=== PATIENT | female | born 1985 | race Caucasian/White ===

== ENCOUNTER 2016-06-16 16:30 | Emergency (ER) | payer OTHER ==
--- NOTE | 2016-06-16 19:29 | ED ORDER SUMMARY ---
..... Patient: MARITZA HERNANDEZ OrderSheet [facility] VisitID: [id number] [place] [address] 31y, F Registration Date/Time: 06/16/2016 ORDER SHEET Weight: 58.9 kg (estimated) Allergies: Penicillins GENERAL ORDERS: MEDICATION ORDERS: Promethazine IV 25 mg (NOW) (17:11 06/16/2016 JCoates) (Ack 17:16 SStone R.N.) (17:40 SStone R.N.) IV FLUIDS: IV NS : initial bolus 1000 mL (1000 mL/hr), then 1000 mL/hr for X2 (NOW) (17:09 06/16/2016 JCoates) (Ack 17:16 SStone R.N.) (17:39 SStone R.N.) Decadron IV 10 mg (NOW) (17:10 06/16/2016 JCoates) (Ack 17:16 SStone R.N.) (17:40 SStone R.N.) Benadryl IV 25 mg (prior to promethazine. Thanks.) (17:10 06/16/2016 JCoates) (Ack 17:16 SStone R.N.) (17:40 SStone R.N.) Toradol IV 30 mg (NOW) (17:11 06/16/2016 JCoates) (Ack 17:16 SStone R.N.) (17:40 SStone R.N.) IV Saline Lock (17:12 06/16/2016 JCoates) (Ack 17:16 SStone R.N.) ORDER SHEET NOTES: [Electronically signed by Jean Paul Kinsey (23:06 06/16/2016)] [Electronically signed by Rhonda Cifuentes (23:34 06/16/2016)] [Electronically locked/signed by Rhonda Cifuentes (23:34 06/16/2016)]
--- NOTE | 2016-06-16 19:29 | ED ORDER SUMMARY ---
..... Patient: MARITZA HERNANDEZ OrderSheet [facility] VisitID: [id number] [place] [address] 31y, F Registration Date/Time: 06/16/2016 ORDER SHEET Weight: 58.9 kg (estimated) Allergies: Penicillins GENERAL ORDERS: MEDICATION ORDERS: Promethazine IV 25 mg (NOW) (17:11 06/16/2016 JCoates) (Ack 17:16 SStone R.N.) (17:40 SStone R.N.) IV FLUIDS: IV NS : initial bolus 1000 mL (1000 mL/hr), then 1000 mL/hr for X2 (NOW) (17:09 06/16/2016 JCoates) (Ack 17:16 SStone R.N.) (17:39 SStone R.N.) Decadron IV 10 mg (NOW) (17:10 06/16/2016 JCoates) (Ack 17:16 SStone R.N.) (17:40 SStone R.N.) Benadryl IV 25 mg (prior to promethazine. Thanks.) (17:10 06/16/2016 JCoates) (Ack 17:16 SStone R.N.) (17:40 SStone R.N.) Toradol IV 30 mg (NOW) (17:11 06/16/2016 JCoates) (Ack 17:16 SStone R.N.) (17:40 SStone R.N.) IV Saline Lock (17:12 06/16/2016 JCoates) (Ack 17:16 SStone R.N.) ORDER SHEET NOTES: [Electronically signed by Jean Paul Kinsey (23:06 06/16/2016)] [Electronically signed by Rhonda Cifuentes (23:34 06/16/2016)] [Electronically locked/signed by Rhonda Cifuentes (23:34 06/16/2016)]
--- NOTE | 2016-06-16 19:29 | ED CLINICAL REPORT ---
Clinical Report - Physicians/Mid Levels [facility] [address] [place] [address] 06/16/2016 16:32 Patient: MARITZA HERNANDEZ Time Seen: 16:53 Jun 16 2016. Arrived- By private vehicle. Historian- patient. HISTORY OF PRESENT ILLNESS Is still present and worsening. Chief Complaint: MIGRAINE HEADACHE. This started about 2 days ago. It was gradual in onset and has been constant. Onset during rest. It is described as similar to previous headaches. Located in the left hemicranial region. No neck pain. Not located in the facial region. At its maximum, severity described as severe. When seen in the E.D., severity described as severe. Modifying factors: worsened by bright light, noise and tension; relieved by nothing. The patient has had photophobia, nausea and vomiting. No preceding symptoms, blurred vision, numbness or weakness. (Patient has a long history of migraine headaches. Previously she was being given Percocet whenever she got them. 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 She started Suboxone 2 days ago and shortly thereafter started to getthis headache. She says it feels like her usual headache. She is trying to drink fluids and restbut nothing is helped. She says usually she can break them but occasionally needs to come in for medication.). Recent medical care: The patient was seen recently at another facility in a clinic. REVIEW OF SYSTEMS No fever, muscle aches, sinus pressure, ear pain or sore throat. No head injury, chest pain, difficulty breathing, cough or abdominal pain. No diarrhea, pain with urination, skin rash or back pain. All systems otherwise negative, except as recorded above. PAST HISTORY See nurses notes. History of chronic headaches. No history of immunosuppression, heart disease, lung disease, hypertension or diabetes mellitus. SOCIAL HISTORY Never smoker. No alcohol use. FAMILY HISTORY History of migraine headaches in first-degree relative (mother). ADDITIONAL NOTES The nursing notes have been reviewed. PHYSICAL EXAM Appearance: Alert. Patient in moderate distress. Distress appears due to pain but not due to anxiety or respiratory difficulty. Eyes: Photophobia present. Pupils equal, round and reactive to light. No conjunctival findings. ENT: Ears normal. Nose normal. Pharynx normal. Neck: Normal inspection. Neck supple. No meningeal signs or lymphadenopathy. CVS: Normal heart rate and rhythm. Heart sounds normal. Respiratory: No respiratory distress. Breath sounds normal. Abdomen: Soft and nontender. No organomegaly. Back: Normal inspection. No CVA tenderness. Skin: Skin warm and dry. No rash. Extremities: Extremities exhibit normal ROM. No lower extremity edema. Neuro: Oriented X 3. Alert. Mood/affect normal. Speech normal. Cranial nerves normal (as tested). No cerebellar findings. No motor deficit. No sensory deficit. PROGRESS AND PROCEDURES Course of Care: 17:12 06/16/16. Patient stable. slow onset of her usual migraine headache. She is requiring IV rehydration and meds in the past. We will treat aggressively with Decadron, Toradol, Benadryl and promethazine as well as a 2 L bolus now. Patient has improved significant only with hydration and meds. We'll discharge home. Work note given for tomorrow. Follow up with her primary care provider in 72 hrs if not completely better. Disposition: Discharged home in good and improved condition. CLINICAL IMPRESSION Acute migraine headache. INSTRUCTIONS Rest at home today and tomorrow. Do not work for one day. No dietary restrictions. Warnings: SEDATIVE MEDICATION: You were given sedative medication during your visit. Do not drive or operate dangerous machinery. GENERAL WARNINGS: Return or contact your physician immediately if your condition worsens or changes unexpectedly, if not improving as expected, or if other problems arise. SPECIFICALLY, return if you develop fever or fainting; or for continued vomiting. Prescription Medications: Naproxen 500 mg: take 1 orally every 12 hours for 5 days as needed for pain. Dispense ten (10). No refills. Promethazine Tablets 25 mg: take 1-2 tablets orally every 6 hours as needed for nausea and vomiting. Dispense fifteen (15). No refill. Follow-up: Follow up with your doctor in three days if not well. Understanding of the discharge instructions verbalized by patient. (Electronically signed by Jean Paul Kinsey, 06/16/2016 23:06)
--- NOTE | 2016-06-16 19:29 | ED NURSING NOTES ---
Clinical Report - [facility] [address] [place] [address] 06/16/2016 16:32 Patient: MARITZA HERNANDEZ TRIAGE Triage time 1641. Acuity: LEVEL 3. Chief Complaint: MIGRAINE HEADACHE. STEFF COMA SCORE: [place] Coma Scale: 15- eyes open spontaneously (4); best verbal response- oriented x 4 (5); best motor response- obeys commands (6). --16:50 Malia Gutierrez R.N. 16:41 06/16/16. BP: 110/72. HR: 77. RR: 16 (unlabored). O2 saturation: 100% on room air. Temp: 98 F (oral). Pain level now: 910. --16:50 Malia Gutierrez R.N. Weight: 58.9 kg estimated. Height/Length: 62 inches Per Patient. BMI: 23.8. --16:39 Malia Gutierrez R.N. Medications Suboxone Sublingual (Film 8-2 mg) 1/2 , 2 x day. --16:47 Malia Gutierrez R.N. Gabapentin Oral (Capsule 300 mg) 1 capsule, at bedtime. --16:47 Malia Gutierrez R.N. TiZANidine HCl Oral (Tablet 4 mg) 1 tablet, 3x a day. --16:48 Malia Gutierrez R.N. Allergies Penicillins. --16:46 Malia Gutierrez R.N. Medication/allergy information source: the patient and patient's spouse. --16:50 Malia Gutierrez R.N. History Arrived by private vehicle. Historian: patient. Accompanied by family and spouse. Primary physician (Dr. Henry Ortiz). ( pt c/o migraine x 2 days and feeling worse today with vomiting and light sensitivity.). This started 2 days ago. Onset. (Monday). She has had nausea and vomiting. 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 PAST MEDICAL HX: Headaches. Last normal menstrual period- . SOCIAL HX: Never smoker. No alcohol use or drug use. ABUSE ASSESSMENT: No report of abuse. FALL RISK ASSESSMENT: Fall risk assessment completed. No fall risk identified. NUTRITIONAL RISK ASSESSMENT: The nutritional risk assessment revealed no deficiencies. FUNCTIONAL ASSESSMENT: Functional assessment: no impairments noted. LEARNING NEEDS ASSESSMENT: The learning needs assessment revealed no barriers. SKIN INTEGRITY ASSESSMENT: Skin integrity risk assessment completed. No skin integrity risk identified. --16:50 Malia Gutierrez R.N. PROBLEMS: Headache. Migraine Headache. Mastitis. LNMP - Last Normal Menstrual Period. --16:48 Malia Gutierrez R.N. ADDITIONAL SURGERIES: Dilatation & Curettage. --16:48 Malia Gutierrez R.N. Interventions ID band on patient. To treatment room. --16:50 Malia Gutierrez R.N. PHYSICAL ASSESSMENT 16:50. Ambulatory to room. GENERAL / NEURO / PSYCH: Alert. Oriented X 4. Appears in pain. Speech within normal limits. HEENT: Photophobia present. RESPIRATORY: Respirations not labored. SKIN: Skin is warm and dry. --17:02 Malia Gutierrez R.N. NURSING PROGRESS NOTES Patient gowned. Head of bed elevated. Two patient identifiers checked. Call light placed in reach. Side rails up x 1. Bed placed in lowest position. Brakes of bed on. Patient ready for evaluation. --16:50 Malia Gutierrez R.N. 17:30 06/16/2016 Toradol IVP 30 mg given over 2 minute(s) via site #1. --17:40 Anneliese Aguilera R.N. 17:39 06/16/2016 Site #1 started via IV in the right antecubital space with an 20g angiocath. Saline lock flushed with 10 mL saline. --17:39 Anneliese Aguilera R.N. 17:39 06/16/2016 Started bag #1 1000 mL IV Fluids IV NS (Saline); at 1000 mL/hr over 1 hour(s) via site #1 --17:39 Anneliese Aguilera R.N. 17:40 06/16/2016 Decadron IVP 10 mg given over 2 minute(s) via site #1. --17:40 Anneliese Aguilera R.N. 17:40 06/16/2016 Benadryl (DiphenhydrAMINE HCl) IVP 25 mg given over 2 minute(s) via site #1. --17:40 Anneliese Aguilera R.N. 17:40 06/16/2016 PROMETHAZINE IVP 25 mg given over 5 minute(s) via site #1. --17:40 Anneliese Aguilera R.N. 18:01 06/16/16. BP: 126/76. HR: 109. RR: 16. O2 saturation: 97%. Pain level now: 0/10. --18:02 Anneliese Aguilera R.N. ( pt reports headache gone, feeling "out of it" after medication). --18:02 Anneliese Aguilera R.N. 18:31 06/16/2016 IV Fluids IV NS Bag Change: bag #1 infused. STARTED bag #2 (1000 mL) at 1000 mL/hr. IV patency established. IV site checked: no pain, redness, or swelling. IV flushed thoroughly. --18:47 Anneliese Aguilera R.N. 18:50 06/16/16. BP: 114/66. HR: 98. RR: 18. O2 saturation: 100%. Pain level now: 0/10. --18:51 Anneliese Aguilera R.N. ( report to lindsey kessler for end of shift coverage.). --18:51 Anneliese Aguilera R.N. 19:37 06/16/2016 IV Fluids IV NS Discontinued: bag #2 completed. Total amount infused: 1000 mL. IV patency established. IV site checked: no pain, redness, or swelling. IV flushed thoroughly. --19:42 Rhonda Cifuentes. DISPOSITION / DISCHARGE 19:50 06/16/16. Condition at departure: improved and stable. No learning barriers present. Discharge instructions provided and reviewed with the patient. Reviewed medication(s) side effects, precautions, dosing and course information. Prescription(s) given to the patient. Work note given (No work for one day). Patient and spouse verbalized understanding. Written instructions provided in Tristanian. ( Follow up with your PCP in three days. Increase fluids.). The patient was discharged by the physician early childhood assistant. She was discharged home and accompanied by spouse. She left the Emergency Department ambulatory and via private vehicle. Spouse driving. --23:32 Rhonda Cifuentes 19:50 06/16/16. BP: 110/66. HR: 96. RR: 20. O2 saturation: 98% on room air. Temp: 98 F (oral). Pain level now: 06/24. --23:32 Rhonda Cifuentes 19:50 06/16/2016 Site #1 removed upon discharge. Catheter intact. Bandaid applied. --23:33 Rhonda Cifuentes. Locked/Released at 06/16/2016 23:34 by Rhonda Cifuentes,
--- NOTE | 2016-06-16 23:34 | ED DISCHARGE INSTRUCTIONS ---
Patient: MARITZA HERNANDEZ General Instructions [facility] VisitID: [id number] [place] [address] 31y, F Registration Date/Time: 06/16/2016 Acute migraine headache. INSTRUCTIONS Rest at home today and tomorrow. Do not work for one day. No dietary restrictions. Warnings: SEDATIVE MEDICATION: You were given sedative medication during your visit. Do not drive or operate dangerous machinery. GENERAL WARNINGS: Return or contact your physician immediately if your condition worsens or changes unexpectedly, if not improving as expected, or if other problems arise. SPECIFICALLY, return if you develop fever or fainting; or for continued vomiting. Prescription Medications: Naproxen 500 mg: take 1 orally every 12 hours for 5 days as needed for pain. Dispense ten (10). No refills. Promethazine Tablets 25 mg: take 1-2 tablets orally every 6 hours as needed for nausea and vomiting. Dispense fifteen (15). No refill. Follow-up: Follow up with your doctor in three days if not well. Understanding of the discharge instructions verbalized by patient. ADDITIONAL INFORMATION Migraine Headache Migraine headaches are related to changes in blood flow to the brain. This causes throbbing or constant pain on one or both sides of the head. The pain may last from a few hours to several days. There is usually nausea, vomiting, sensitivity to light and sound, and blurred vision. A migraine attack may be triggered by emotional stress, hormone changes during the menstrual cycle, oral contraceptives, alcohol use, certain foods containing tyramine, eye strain, weather changes, missing meals, or too little or too much sleep. Home Care For This Headache: 1) If you were given pain medicine for this headache, do not drive yourself home . Arrange for a ride, instead. When you get home, try to sleep. You should feel much better when you wake up. 2) Migraine headaches may improve with an ice pack on the forehead or at the base of the skull. Heat to the back of your neck may relieve any neck spasm. 3) Drink only clear liquids or eat a very light diet to avoid nausea/vomiting until symptoms improve. Preventing Future Headaches: 1) Pay attention to those factors that seem to trigger your headache. Try to avoid them when you can. If you have frequent headaches, it is useful to keep a diary of what you were doing, feeling or eating in the hours before each attack. Show this to your doctor to help find the cause of your headaches. a) If you feel that stress is a factor in your headaches, look at the sources of stress in your life. Find ways to release the build-up of those stresses by using regular exercise, relaxation methods (yoga, meditation), bio-feedback or simply taking time-out for yourself. For more information about this, consult your doctor or go to a local bookstore and review books and tapes on this subject. b) Tyramine is a substance present in the following foods : chocolate, yogurt, all cheeses except cottage cheese and cream cheese. smoked or pickled fish and meat (including delacruz, caviar, bologna, pepperoni, salami), liver, avocados, bananas, figs, raisins, and red wine. Be aware that these foods may trigger a migraine in some persons. Try taking these foods out of your diet for 1-2 months to see if this reduces headache frequency. Treating Future Attacks: 1) At the first sign of a headache, take time out if possible. Find a quiet, dark, comfortable place to sit or lie down. Let yourself relax or sleep. 2) An ice pack on the forehead or area of greatest pain may help. If you are having muscle spasm and tightness of the neck, a heating pad and massage to this area may be helpful. 3) If you have been prescribed a medicine to stop a migraine headache, use this at the very first warning sign of the headache (aura or initial pain) for best results. Follow Up with your doctor if the headache is not better within the next 24 hours. If you have frequent headaches you should discuss a treatment plan with your primary care doctor. Ask if you can have medicine to take at home the next time you get a bad headache. Poorly controlled chronic headaches may require a referral to a neurologist (headache specialist). Get Prompt Medical Attention if any of the following occur: Your head pain gets worse, or does not improve within 24 hours Repeated vomiting (cant keep liquids down) Sinus or ear or throat pain (not already reported) Fever of 100.4 F (38 C) or higher, or as directed by your healthcare provider Stiff neck Extreme drowsiness, confusion or fainting Dizziness, vertigo (dizziness with spinning sensation) Weakness of an arm or leg or one side of the face Difficulty with speech or vision Naproxen Sodium Oral tablet What is this medicine? NAPROXEN (na PROX en) is a non-steroidal anti-inflammatory drug (NSAID). It is used to reduce swelling and to treat pain. This medicine may be used for dental pain, headache, or painful monthly periods. It is also used for painful joint and muscular problems such as arthritis, tendinitis, bursitis, and gout. How should I use this medicine? Take this medicine by mouth with a glass of water. Follow the directions on the prescription label. Take it with food if your stomach gets upset. Try to not lie down for at least 10 minutes after you take it. Take your medicine at regular intervals. Do not take your medicine more often than directed. Long-term, continuous use may increase the risk of heart attack or stroke. A special MedGuide will be given to you by the pharmacist with each prescription and refill. Be sure to read this information carefully each time. Talk to your flat breakdown processor regarding the use of this medicine in children. Special care may be needed. What side effects may I notice from receiving this medicine? Side effects that you should report to your doctor or health nurse healthcare manager as soon as possible: black or bloody stools, blood in the urine or vomit blurred vision chest pain difficulty breathing or wheezing nausea or vomiting severe stomach pain skin rash, skin redness, blistering or peeling skin, hives, or itching slurred speech or weakness on one side of the body swelling of eyelids, throat, lips unexplained weight gain or swelling unusually weak or tired yellowing of eyes or skin Side effects that usually do not require medical attention (report to your doctor or health nurse healthcare manager if they continue or are bothersome): constipation headache heartburn What may interact with this medicine? alcohol aspirin cidofovir diuretics lithium methotrexate other drugs for inflammation like ketorolac or prednisone pemetrexed probenecid warfarin What if I miss a dose? If you miss a dose, take it as soon as you can. If it is almost time for your next dose, take only that dose. Do not take double or extra doses. Where should I keep my medicine? Keep out of the reach of children. Store at room temperature between 15 and 30 degrees C (59 and 86 degrees F). Keep container tightly closed. Throw away any unused medicine after the expiration date. What should I tell my health care provider before I take this medicine? They need to know if you have any of these conditions: asthma cigarette smoker drink more than 3 alcohol containing drinks a day heart disease or circulation problems such as heart failure or leg edema (fluid retention) high blood pressure kidney disease liver disease stomach bleeding or ulcers an unusual or allergic reaction to naproxen, aspirin, other NSAIDs, other medicines, foods, dyes, or preservatives or trying to get breast-feeding What should I watch for while using this medicine? Tell your doctor or health nurse healthcare manager if your pain does not get better. Talk to your doctor before taking another medicine for pain. Do not treat yourself. This medicine does not prevent heart attack or stroke. In fact, this medicine may increase the chance of a heart attack or stroke. The chance may increase with longer use of this medicine and in people who have heart disease. If you take aspirin to prevent heart attack or stroke, talk with your doctor or health nurse healthcare manager. Do not take other medicines that contain aspirin, ibuprofen, or naproxen with this medicine. Side effects such as stomach upset, nausea, or ulcers may be more likely to occur. Many medicines available without a prescription should not be taken with this medicine. This medicine can cause ulcers and bleeding in the stomach and intestines at any time during treatment. Do not smoke cigarettes or drink alcohol. These increase irritation to your stomach and can make it more susceptible to damage from this medicine. Ulcers and bleeding can happen without warning symptoms and can cause . You may get drowsy or dizzy. Do not drive, use machinery, or do anything that needs mental alertness until you know how this medicine affects you. Do not stand or sit up quickly, especially if you are an older patient. This reduces the risk of dizzy or fainting spells. This medicine can cause you to bleed more easily. Try to avoid damage to your teeth and gums when you brush or floss your teeth. Promethazine Hydrochloride Oral tablet What is this medicine? PROMETHAZINE (proe METH a zeen) is an antihistamine. It is used to treat allergic reactions and to treat or prevent nausea and vomiting from illness or motion sickness. It is also used to make you sleep before surgery, and to help treat pain or nausea after surgery. How should I use this medicine? Take this medicine by mouth with a glass of water. Follow the directions on the prescription label. Take your doses at regular intervals. Do not take your medicine more often than directed. Talk to your flat breakdown processor regarding the use of this medicine in children. Special care may be needed. This medicine should not be given to infants and children younger than 2 years old. What side effects may I notice from receiving this medicine? Side effects that you should report to your doctor or health nurse healthcare manager as soon as possible: blurred vision irregular heartbeat, palpitations or chest pain muscle or facial twitches pain or difficulty passing urine seizures skin rash slowed or shallow breathing unusual bleeding or bruising yellowing of the eyes or skin Side effects that usually do not require medical attention (report to your doctor or health nurse healthcare manager if they continue or are bothersome): headache nightmares, agitation, nervousness, excitability, not able to sleep (these are more likely in children) stuffy nose What may interact with this medicine? Do not take this medicine with any of the following medications: medicines called MAO Inhibitors like Nardil, Parnate, Marplan, Eldepryl other phenothiazines like trimethobenzamide This medicine may also interact with the following medications: barbiturates like phenobarbital bromocriptine certain antidepressants certain antihistamines used in allergy or cold medicines epinephrine levodopa medicines for sleep medicines for mental problems and psychotic disturbances medicines for movement abnormalities as in Parkinson's disease, or for gastrointestinal problems muscle relaxants prescription pain medicines What if I miss a dose? If you miss a dose, take it as soon as you can. If it is almost time for your next dose, take only that dose. Do not take double or extra doses. Where should I keep my medicine? Keep out of the reach of children. Store at room temperature, between 20 and 25 degrees C (68 and 77 degrees F). Protect from light. Throw away any unused medicine after the expiration date. What should I tell my health care provider before I take this medicine? They need to know if you have any of these conditions: glaucoma high blood pressure or heart disease kidney disease liver disease lung or breathing disease, like asthma prostate trouble pain or difficulty passing urine seizures an unusual or allergic reaction to promethazine or phenothiazines, other medicines, foods, dyes, or preservatives or trying to get breast-feeding What should I watch for while using this medicine? Tell your doctor or health nurse healthcare manager if your symptoms do not start to get better in 1 to 2 days. You may get drowsy or dizzy. Do not drive, use machinery, or do anything that needs mental alertness until you know how this medicine affects you. To reduce the risk of dizzy or fainting spells, do not stand or sit up quickly, especially if you are an older patient. Alcohol may increase dizziness and drowsiness. Avoid alcoholic drinks. Your mouth may get dry. Chewing sugarless gum or sucking hard candy, and drinking plenty of water may help. Contact your doctor if the problem does not go away or is severe. This medicine may cause dry eyes and blurred vision. If you wear contact lenses you may feel some discomfort. Lubricating drops may help. See your eye doctor if the problem does not go away or is severe. This medicine can make you more sensitive to the sun. Keep out of the sun. If you cannot avoid being in the sun, wear protective clothing and use sunscreen. Do not use sun lamps or tanning beds/booths. If you are diabetic, check your blood-sugar levels regularly. You have been given the following additional information: Headache, Migraine (Classical) Naproxen Sodium Oral tablet Promethazine Hydrochloride Oral tablet Rest at home today and tomorrow. Do not work for one day. (Electronically signed by Jean Paul Kinsey, 06/16/2016 23:06)
--- NOTE | 2016-06-16 23:34 | ED MED RECONCILIATION SUMMARY ---
Patient: MARITZA HERNANDEZ Medication Reconciliation Report [facility] VisitID: [id number] [address] [place] [address] 31y, F Registration Date/Time: 06/16/2016 Weight: 58.9 kg Height/Length: 62 in. BMI: 23.8 ALLERGIES: Penicillins The patient's Home Medications are listed below: THE FOLLOWING MEDICATIONS NEED TO BE RECONCILED: Gabapentin Oral (300 mg) 1 capsule, at bedtime Suboxone Sublingual (8-2 mg) 1/2 , 2 x day TiZANidine HCl Oral (4 mg) 1 tablet, 3x a day The source(s) of the original Home Medication information: patient patient's spouse The following Medications were given to the patient in the Emergency Department: IV NS IV Fluids bolus 0, then 1000 mL/hr, administered: 06/16/2016 5:39:00 PM Decadron [IVP] IVP 10 mg, administered: 06/16/2016 5:40:00 PM Benadryl [IVP] IVP 25 mg, administered: 06/16/2016 5:40:00 PM PROMETHAZINE [IVP] IVP 25 mg, administered: 06/16/2016 5:40:00 PM Toradol [IVP] IVP 30 mg, administered: 06/16/2016 5:30:00 PM The following Medications were prescribed to the patient: Naproxen 500 mg: take 1 orally every 12 hours for 5 days as needed for pain. Dispense ten (10). No refills. -- Jean Paul Kinsey Promethazine Tablets 25 mg: take 1-2 tablets orally every 6 hours as needed for nausea and vomiting. Dispense fifteen (15). No refill. -- Jean Paul Kinsey
--- NOTE | 2016-06-16 23:34 | ED MAR SUMMARY ---
..... Medication Administration Record [facility] [address] [place] [address] Patient: MARITZA HERNANDEZ Visit ID: [id number] 31y, F Weight: 58.9 kg Height/Length: 62 in BMI: 23.8 ALLERGIES: Penicillins Given 17:30 06/16/2016 Anneliese Aguilera R.N. Medication Administered: TORADOL [IVP], Dose: 30 mg IVP over 2 minute(s), Site: #1. Medication Ordered: Toradol IV 30 mg (NOW). Start 17:39 06/16/2016 Anneliese Aguilera R.N., Stop 19:37 06/16/2016 Rhonda Cifuentes, Medication Administered: IV NS (SALINE), Dose: IV Fluids over 1 hour(s), Rate: 1000 mL/hr, Dispensed: 1000 mL bag, Site: #1 right AC. Medication Ordered: IV NS : initial bolus 1000 mL (1000 mL/hr), then 1000 mL/hr for X2 (NOW). Given 17:40 06/16/2016 Anneliese Aguilera R.N. Medication Administered: DECADRON [IVP], Dose: 10 mg IVP over 2 minute(s), Site: #1 right AC. Medication Ordered: Decadron IV 10 mg (NOW). Given 17:40 06/16/2016 Anneliese Aguilera R.N. Medication Administered: BENADRYL [IVP] (DIPHENHYDRAMINE HCL), Dose: 25 mg IVP over 2 minute(s), Site: #1 right AC. Medication Ordered: Benadryl IV 25 mg (prior to promethazine. Thanks.). Given 17:06/16/2016 Anneliese Aguilera R.N. Medication Administered: PROMETHAZINE [IVP], Dose: 25 mg IVP over 5 minute(s), Site: #1 right AC. Medication Ordered: Promethazine IV 25 mg (NOW).
--- NOTE | 2016-06-16 23:34 | ED MAR SUMMARY ---
..... Medication Administration Record [facility] [address] [address] Patient: MARITZA HERNANDEZ Visit ID: [id number] 31y, F Weight: 58.9 kg Height/Length: 62 in BMI: 23.8 ALLERGIES: Penicillins Given 17:30 06/16/2016 Anneliese Aguilera R.N. Medication Administered: TORADOL [IVP], Dose: 30 mg IVP over 2 minute(s), Site: #1. Medication Ordered: Toradol IV 30 mg (NOW). Start 17:39 06/16/2016 Anneliese Aguilera R.N., Stop 19:37 06/16/2016 Rhonda Cifuentes, Medication Administered: IV NS (SALINE), Dose: IV Fluids over 1 hour(s), Rate: 1000 mL/hr, Dispensed: 1000 mL bag, Site: #1 right AC. Medication Ordered: IV NS : initial bolus 1000 mL (1000 mL/hr), then 1000 mL/hr for X2 (NOW). Given 17:40 06/16/2016 Anneliese Aguilera R.N. Medication Administered: DECADRON [IVP], Dose: 10 mg IVP over 2 minute(s), Site: #1 right AC. Medication Ordered: Decadron IV 10 mg (NOW). Given 17:40 06/16/2016 Anneliese Aguilera R.N. Medication Administered: BENADRYL [IVP] (DIPHENHYDRAMINE HCL), Dose: 25 mg IVP over 2 minute(s), Site: #1 right AC. Medication Ordered: Benadryl IV 25 mg (prior to promethazine. Thanks.). Given 17:06/16/2016 Anneliese Aguilera R.N. Medication Administered: PROMETHAZINE [IVP], Dose: 25 mg IVP over 5 minute(s), Site: #1 right AC. Medication Ordered: Promethazine IV 25 mg (NOW).
--- NOTE | 2016-06-16 23:34 | ED MED RECONCILIATION SUMMARY ---
Patient: MARITZA HERNANDEZ Medication Reconciliation Report [facility] VisitID: [id number] [address] [place] [address] 31y, F Registration Date/Time: 06/16/2016 Weight: 58.9 kg Height/Length: 62 in. BMI: 23.8 ALLERGIES: Penicillins The patient's Home Medications are listed below: THE FOLLOWING MEDICATIONS NEED TO BE RECONCILED: Gabapentin Oral (300 mg) 1 capsule, at bedtime Suboxone Sublingual (8-2 mg) 1/2 , 2 x day TiZANidine HCl Oral (4 mg) 1 tablet, 3x a day The source(s) of the original Home Medication information: patient patient's spouse The following Medications were given to the patient in the Emergency Department: IV NS IV Fluids bolus 0, then 1000 mL/hr, administered: 06/16/2016 5:39:00 PM Decadron [IVP] IVP 10 mg, administered: 06/16/2016 5:40:00 PM Benadryl [IVP] IVP 25 mg, administered: 06/16/2016 5:40:00 PM PROMETHAZINE [IVP] IVP 25 mg, administered: 06/16/2016 5:40:00 PM Toradol [IVP] IVP 30 mg, administered: 06/16/2016 5:30:00 PM The following Medications were prescribed to the patient: Naproxen 500 mg: take 1 orally every 12 hours for 5 days as needed for pain. Dispense ten (10). No refills. -- Jean Paul Kinsey Promethazine Tablets 25 mg: take 1-2 tablets orally every 6 hours as needed for nausea and vomiting. Dispense fifteen (15). No refill. -- Jean Paul Kinsey
== END 2016-06-16 19:50 | disposition home or self-care (01) ==
LOC: ED SRH 16:30
DX: G43.909 Migraine, unspecified, not intractable, without status migrainosus (principal); Z88.0 Allergy status to penicillin